=== PATIENT | female | born 1955 | race Caucasian/White ===

== ENCOUNTER 2017-02-23 09:00 | Emergency (ER) | payer BC ==
[~2017-02-23] VITALS: Ht 160 cm; Wt 65.0 kg
[~2017-02-23 09:00] MED LIST: ASPI81TA82 PO; FIORIC PO; TOPR50TA PO; ZOCO40TA PO
[2017-02-23 09:07] VITALS: BP 134/82; PULSE 62; RESP 16; TEMP 97.6; O2SAT 99
--- NOTE | 2017-02-23 09:14 | PD ---
HPI Chief Complaint: Chest Pain Time Seen by Provider: 09:05 Travel History International Travel<30 days: No Contact w/Intl Traveler<30days: No Traveled to known affect area: No History of Present Illness HPI This 61-year-old female is complaining of chest pain and shortness of breath. She had some mild symptoms last night when she took some antibiotics. This morning the pain seemed worse. It is a constant lower sternal pain. It is not affected by deep breathing. She has no history of heart disease. She has not been diaphoretic. There is no radiation. She does not smoke. She has a history of hypertension but did not take her medication this morning. She has no history of diabetes. She was seen in urgent care center on Wednesday for a wound on her right hand from a dog bite. She was sutured and she was started on antibiotics. She has a history of gastric reflux and was on medication in the past but has not been taking them recently. PFSH Past Medical History Arthritis: Yes Heart Rhythm Problems: Yes Cancer: No Cardiovascular Problems: Yes Diabetes: No Diminished Hearing: No Endocrine: No GERD: Yes Genitourinary: No Hepatitis: No Hiatal Hernia: No Hypertension: Yes Immune Disorder: No Musculoskeletal: Yes Neurologic: Yes Psychiatric: No Reproductive: No Respiratory: No Immunizations Current: Yes Migraines: Yes Thyroid Disease: No Menopausal: Yes Past Surgical History Gynecologic Surgery: Yes (PROLAPSE UTERUS) Oral Surgery: Yes (TEETH EXTRACTED) Pacemaker: No Tonsillectomy: Yes Other Surgery: Yes (PROLAPSED UTERUS, RECTUM REPAIR) Social History Alcohol Use: No Tobacco Use: No Substance Use: No Allergies-Medications (Allergen,Severity, Reaction): Coded Allergies: Percocet (Verified Allergy, Severe, HALLUCINATIONS, 02/23/17) Amoxicillin (Verified Allergy, Mild, FEVER,RASH, 02/23/17) Prednisone (Verified Allergy, Mild, HYPER, 02/23/17) Reported Meds & Prescriptions Reported Meds & Active Scripts Active Reported Cipro (Ciprofloxacin HCl) 500 Mg Tab 500 Mg PO BID Clindamycin (Clindamycin HCl) 300 Mg Cap 300 Mg PO Q6H Mupirocin Topical (Mupirocin) 2 % Oint 1 Applic TOPICAL BID Fioricet (Shrsyxtgck-Lwhohvrwqwqpm-Plnnosgg) 50-300-40 Mg Cap 1 Cap PO Q4H PRN Toprol XL (Metoprolol Succinate) 50 Mg Tab 50 Mg PO DAILY Aspirin 81 Mg Tabdr 81 Mg PO DAILY Review of Systems General / Constitutional: No: Fever, Chills Eyes: No: Diploplia, Blurred Vision HENT: No: Headaches, Vertigo Cardiovascular: No: Chest Pain or Discomfort, Palpitations Respiratory: No: Cough Gastrointestinal: Positive: Abdominal Pain Genitourinary: No: Urgency, Frequency Skin: No Rash, No Itching Physical Exam Narrative GENERAL: Well-developed female SKIN: Focused skin assessment warm/dry. HEAD: Atraumatic. Normocephalic. EYES: Pupils equal and round. No scleral icterus. No injection or drainage. ENT: No nasal bleeding or discharge. Mucous membranes pink and moist. NECK: Trachea midline. No JVD. CARDIOVASCULAR: Regular rate and rhythm. No murmur appreciated. RESPIRATORY: No accessory muscle use. Clear to auscultation. Breath sounds equal bilaterally. GASTROINTESTINAL: Abdomen soft, there is epigastric tenderness, nondistended. Hepatic and splenic margins not palpable. MUSCULOSKELETAL: No obvious deformities. No clubbing. No cyanosis. No edema. There is a sutured wound on the right hand at the thumb which is healing with minimal erythema NEUROLOGICAL: Awake and alert. No obvious cranial nerve deficits. Motor grossly within normal limits. Normal speech. PSYCHIATRIC: Appropriate mood and affect; insight and judgment normal. Data Data Last Documented VS Vital Signs Date Time Temp Pulse Resp B/P Pulse Ox O2 Delivery O2 Flow Rate FiO2 02/23/17 10:19 16 02/23/17 09:50 67 108/67 98 Room Air 02/23/17 09:07 97.6 Orders Electrocardiogram (02/23/17 09:11) Complete Blood Count With Diff (02/23/17 09:11) Comprehensive Metabolic Panel (02/23/17 09:11) Troponin I (02/23/17 09:11) Lipase (02/23/17 09:11) Chest, Single Ap (02/23/17 09:11) Al-Mag Hy-Si 40-40-4 Mg/Ml Liq (Mag-Al P (02/23/17 09:15) Aspirin (Aspirin) (02/23/17 10:00) Ondansetron Inj (Zofran Inj) (02/23/17 10:00) Morphine Inj (Morphine Inj) (02/23/17 10:00) Labs Laboratory Tests Test 02/23/17 09:15 White Blood Count 4.8 TH/MM3 Red Blood Count 4.50 MIL/MM3 Hemoglobin 14.1 GM/DL Hematocrit 42.2 % Mean Corpuscular Volume 93.7 FL Mean Corpuscular Hemoglobin 31.2 PG Mean Corpuscular Hemoglobin 33.3 % Concent Red Cell Distribution Width 12.4 % Platelet Count 238 TH/MM3 Mean Platelet Volume 7.2 FL Neutrophils (%) (Auto) 52.5 % Lymphocytes (%) (Auto) 34.4 % Monocytes (%) (Auto) 8.0 % Eosinophils (%) (Auto) 3.6 % Basophils (%) (Auto) 1.5 % Neutrophils # (Auto) 2.4 TH/MM3 Lymphocytes # (Auto) 1.7 TH/MM3 Monocytes # (Auto) 0.4 TH/MM3 Eosinophils # (Auto) 0.2 TH/MM3 Basophils # (Auto) 0.1 TH/MM3 CBC Comment DIFF FINAL Differential Comment Sodium Level 145 MEQ/L Potassium Level 3.5 MEQ/L Chloride Level 108 MEQ/L Carbon Dioxide Level 28.8 MEQ/L Anion Gap 8 MEQ/L Blood Urea Nitrogen 10 MG/DL Creatinine 0.78 MG/DL Estimat Glomerular Filtration 76 ML/MIN Rate Random Glucose 109 MG/DL Calcium Level 8.6 MG/DL Total Bilirubin 0.3 MG/DL Aspartate Amino Transf 19 U/L (AST/SGOT) Alanine Aminotransferase 25 U/L (ALT/SGPT) Alkaline Phosphatase 41 U/L Troponin I LESS THAN 0.02 NG/ML Total Protein 6.9 GM/DL Albumin 3.4 GM/DL Lipase 135 U/L [facility] Medical Decision Making Medical Screen Exam Complete: Yes Emergency Medical Condition: Yes Medical Record Reviewed: Yes Differential Diagnosis Differential includes coronary artery disease, gastritis, ulcer disease Narrative Course Patient is complaining of chest pain but she points to the epigastric region as the site of her pain. She has recently been started on clindamycin and Cipro to treat an infected dog bite. The dog bite is improving. I believe her symptoms are secondary to gastritis from her antibiotic use. She is stable for discharge. Chest x-ray is negative. Troponin is negative Diagnosis Primary Impression: Gastritis Qualified Code: K29.00 - Other acute gastritis without hemorrhage Disposition: DISCHARGE HOME Condition: Stable Gerry Nicole MD February 23, 2017 09:14
[2017-02-23] MEDS ORDERED: ALUMINUM/MAGNESIUM/SIMETH 30 ML CUP PO ONE (09:15)
[2017-02-23 09:31] LABS: AUTOMATED NEUTROPHIL # 2.4 TH/MM3 (1.8-7.7); BASOPHIL # 0.1 TH/MM3 (0-0.2); BASOPHIL % 1.5 % (0.0-2.0); EOSINOPHIL # 0.2 TH/MM3 (0-0.4); EOSINOPHIL % 3.6 % (0.0-4.0); HEMATOCRIT 42.2 % (35.0-46.0); HEMO FLAGS DIFF FINAL; LYMPH % 34.4 % (9.0-44.0); LYMPHOCYTE # 1.7 TH/MM3 (1.0-4.8); MEAN CELL VOLUME 93.7 FL (80.0-100.0); MEAN CORPUSCULAR HEMOGLOBIN 31.2 PG (27.0-34.0); MEAN CORPUSCULAR HGB CONC 33.3 % (32.0-36.0); NEUT % 52.5 % (16.0-70.0); PLATELET COUNT 238 TH/MM3 (150-450); RED CELL DISTRIBUTION WIDTH 12.4 % (11.6-17.2); WHITE BLOOD COUNT 4.8 TH/MM3 (4.0-11.0)
[2017-02-23] MEDS ORDERED: CLIN1CAP6 PO (09:36)
[2017-02-23] MEDS ORDERED: MUPI2OIN TOPICAL (09:36)
[2017-02-23] MEDS ORDERED: TOPR50TA PO (09:36)
[2017-02-23] MEDS ORDERED: ASPI1TAB69 PO (09:36)
[2017-02-23] MEDS ORDERED: CIPR-9 PO (09:36)
[2017-02-23] MEDS ORDERED: BUTA1CAP PO (09:36)
--- NOTE | 2017-02-23 09:38 | RADHPO ---
EXAM DATE/TIME: 02/23/2017 09:32 [facility] COMPARISON: No previous studies available for comparison. INDICATIONS : Chest pain after taking antibiotocs this morning. MEDICAL HISTORY : None. SURGICAL HISTORY : None. ENCOUNTER: Initial ACUITY: 1 day PAIN SCORE: 8/10 LOCATION: Bilateral chest FINDINGS: A single view of the chest demonstrates the lungs to be symmetrically aerated without evidence of mas s, infiltrate or effusion. The cardiomediastinal contours are unremarkable. Osseous structures are intact. CONCLUSION: No acute disease. Guanako Swartz MD on February 23, 2017 at 9:35 Board Certified Radiologist. This report was verified electronically.
[2017-02-23 09:50] VITALS: BP 108/67; PULSE 67; RESP 16; O2SAT 98
[2017-02-23 09:50] LABS: BICARBONATE 28.8 MEQ/L (21.0-32.0)
[2017-02-23 09:53] LABS: AST (GOT) 19 U/L (15-37); GLOMERULAR FILTRATION RATE 76 ML/MIN (>89)
[2017-02-23 09:55] LABS: ANION GAP 8 MEQ/L (5-15); CHLORIDE 108 MEQ/L (98-107); POTASSIUM 3.5 MEQ/L (3.5-5.1); SODIUM (NA) 145 MEQ/L (136-145)
[2017-02-23 09:56] LABS: ALKALINE PHOSPHATASE 41 U/L (45-117)
[2017-02-23 09:58] LABS: ALT (GPT) 25 U/L (10-53)
[2017-02-23] MEDS ORDERED: ASPIRIN 325 MG TAB PO ONE (10:00)
[2017-02-23] MEDS ORDERED: MORPHINE SULFATE 4 MG/ML INJ IV PUSH ONE (10:00)
[2017-02-23] MEDS ORDERED: ONDANSETRON HCL 4 MG/2 ML VIAL IV PUSH ONE (10:00)
[2017-02-23 10:01] LABS: BLOOD UREA NITROGEN 10 MG/DL (7-18)
[2017-02-23 10:10] LABS: TOTAL BILIRUBIN ADULT 0.3 MG/DL (0.2-1.0)
[2017-02-23 10:50] VITALS: BP 106/64; PULSE 68; RESP 16; O2SAT 98
--- NOTE | 2017-02-23 20:11 | EKG ---
Date Performed: 02/23/2017 Time Performed: 09:02:48 PTAGE: 61 years EKG: Sinus rhythm with aberrantly conducted supraventricular complexes. Borderline ECG Compared to prior tracing no si gnificant change DOCTOR: Khanh Ramos Interpretating Date/Time 02/23/2017 20:10:05
== END 2017-02-23 10:59 | disposition home or self-care (01) ==
LOC: PHED 09:00
DX: K29.00 Acute gastritis without bleeding (principal); R07.9 Chest pain, unspecified; R06.02 Shortness of breath; M19.90 Unspecified osteoarthritis, unspecified site; K21.9 Gastro-esophageal reflux disease without esophagitis; I10 Essential (primary) hypertension; Z79.82 Long term (current) use of aspirin; Z79.899 Other long term (current) drug therapy
CPT/HCPCS: 71010; 80053; 83690; 84484; 85025; 93005; 96374; 96375; 99285; J2270; J2405

== ENCOUNTER 2017-12-26 16:31 | Emergency (ER) | payer BC ==
[~2017-12-26] VITALS: Ht 160 cm; Wt 65.0 kg
[~2017-12-26 16:31] MED LIST changes: +ASPI1TAB69 PO; -ASPI81TA82 PO; +BUTA1CAP PO; +CIPR-9 PO; +CLIN300C5 PO; -FIORIC PO; +MUPI2OIN TOPICAL; -ZOCO40TA PO
[2017-12-26 16:42] VITALS: BP 149/90; PULSE 72; RESP 16; TEMP 97.6; O2SAT 98
--- NOTE | 2017-12-26 18:03 | PD ---
HPI Chief Complaint: Injury Time Seen by Provider: 17:33 Travel History International Travel<30 days: No Contact w/Intl Traveler<30days: No Traveled to known affect area: No History of Present Illness HPI 62-year-old female presents emergency department with pain in the left arm and shoulder. Patient states she fell 2 weeks ago while holding her dog, and landed on the left elbow. She states she has had ongoing pain but worse in the last 2 days for some unknown reason. She describes as a sharp pain in the posterior proximal upper arm. She has full range of motion. She denies numbness or tingling. She denies weakness. Pain is 7 out of 10. She denies neck pain. She is allergic to acetaminophen, amoxicillin, oxycodone, and prednisone. PFSH Past Medical History Arthritis: Yes Heart Rhythm Problems: Yes Cancer: No Cardiovascular Problems: Yes Diabetes: No Diminished Hearing: No Endocrine: No Gastrointestinal Disorders: Yes GERD: Yes Genitourinary: No Headaches: Yes Hepatitis: No Hiatal Hernia: No Hypertension: Yes Immune Disorder: No Implanted Vascular Access Dvce: No Medical other: Yes (NECK) Musculoskeletal: Yes Neurologic: Yes Psychiatric: No Reproductive: No Respiratory: No Immunizations Current: Yes Migraines: Yes Thyroid Disease: No ?: Not Menopausal: Yes Past Surgical History Gynecologic Surgery: Yes (PROLAPSE UTERUS) Oral Surgery: Yes (TEETH EXTRACTED) Pacemaker: No Tonsillectomy: Yes Other Surgery: Yes (PROLAPSED UTERUS, RECTUM REPAIR) Social History Alcohol Use: No Tobacco Use: No Substance Use: No Allergies-Medications (Allergen,Severity, Reaction): Coded Allergies: acetaminophen (Unverified Allergy, Severe, HALLUCINATIONS, 05/18/17) oxycodone (Unverified Allergy, Severe, HALLUCINATIONS, 05/18/17) amoxicillin (Unverified Allergy, Mild, FEVER,RASH, 05/18/17) prednisone (Unverified Allergy, Mild, HYPER, 05/18/17) Reported Meds & Prescriptions Reported Meds & Active Scripts Active Tramadol (Tramadol HCl) 50 Mg Tab 50 Mg PO Q6H PRN Prednisone (21) 10 mg tab Dose Pack (Prednisone) 10 Mg Pack 10 Mg PO DIRECTED Reported Cipro (Ciprofloxacin HCl) 500 Mg Tab 500 Mg PO BID Clindamycin (Clindamycin HCl) 300 Mg Cap 300 Mg PO Q6H Mupirocin Topical (Mupirocin) 2 % Oint 1 Applic TOPICAL BID Fioricet (Vooysyadco-Jmjjqysgjuewj-Jcqqofyx) 50-300-40 Mg Cap 1 Cap PO Q4H PRN Toprol XL (Metoprolol Succinate) 50 Mg Tab 50 Mg PO DAILY Aspirin 81 Mg Tabdr 81 Mg PO DAILY Review of Systems Except as stated in HPI: all other systems reviewed are Neg General / Constitutional: No: Fever Eyes: No: Visual changes HENT: No: Headaches Cardiovascular: No: Chest Pain or Discomfort Respiratory: No: Shortness of Breath Gastrointestinal: No: Abdominal Pain Genitourinary: No: Dysuria Musculoskeletal: Positive: Myalgias, Arthralgias, Pain, No: Limited ROM Skin: No Rash Neurologic: No: Weakness Psychiatric: No: Depression Endocrine: No: Polydipsia Hematologic/Lymphatic: No: Easy Bruising Physical Exam Narrative GENERAL: Patient appears in no obvious distress SKIN: Warm and dry. Normal color. Normal turgor. No signs of trauma. No ecchymosis. No rash. HEAD: Atraumatic. Normocephalic. EYES: Pupils equal and round. No scleral icterus. No injection or drainage. ENT: No nasal bleeding or discharge. Mucous membranes pink and moist. Pharynx is clear. Airways patent NECK: Trachea midline. No bony tenderness or step-off. Range of motion is full and nontender CARDIOVASCULAR: Regular rate and rhythm. RESPIRATORY: No accessory muscle use. Clear to auscultation. Breath sounds equal bilaterally. GASTROINTESTINAL: Abdomen soft, non-tender, nondistended. Hepatic and splenic margins not palpable. MUSCULOSKELETAL: Extremities without clubbing, cyanosis, or edema. Patient's pain with palpation to the upper posterior upper arm. Range of motion is full, although painful at end of motion. No weakness is appreciated. No obvious deformity noted. NEUROLOGICAL: Awake and alert. No obvious cranial nerve deficits. Motor grossly within normal limits. Five out of 5 muscle strength in the arms and legs. Normal speech. PSYCHIATRIC: Appropriate mood and affect; insight and judgment normal. Data Data Last Documented VS Vital Signs Date Time Temp Pulse Resp B/P (MAP) Pulse Ox O2 Delivery O2 Flow Rate FiO2 12/26/17 17:25 Room Air 12/26/17 16:42 97.6 72 16 149/90 (109) 98 Orders Orders Elbow, Complete (4 Vws) (12/26/17 17:40) Shoulder, Complete (>2vws) (12/26/17 17:40) Ed Discharge Order (12/26/17 18:37) [facility] Medical Decision Making Medical Screen Exam Complete: Yes Emergency Medical Condition: Yes Differential Diagnosis Trip and fall. Upper arm pain. Possible fracture. Strain. Tendinitis. Contusion. Neuralgia. Narrative Course Patient appears medically stable at time of exam. X-rays of the left shoulder and elbow are ordered. X-rays are unremarkable for acute process per radiologist. Patient will be treated with prednisone 600 mg 4 times daily #40. Patient also given tramadol 50 mg 1 every 6 hours as needed pain #20. Recommend the patient rest the arm and follow-up with her primary if symptoms do not improve. Diagnosis Primary Impression: Left upper arm pain Referrals: Primary Care Physician Patient Instructions: General Instructions Additional Instructions: X-rays are unremarkable for acute process per radiologist. Patient will be treated with prednisone 600 mg 4 times daily #40. Patient also given tramadol 50 mg 1 every 6 hours as needed pain #20. Recommend the patient rest the arm and follow-up with her primary if symptoms do not improve. Med/Other Pt SpecificInfo: Prescription(s) given Scripts Tramadol (Tramadol) 50 Mg Tab 50 MG PO Q6H Y for PAIN, #20 TAB 0 Refills Prov: Adryan Figueredo MD 12/26/17 Disposition: 01 DISCHARGE HOME Condition: Stable Elton Grover Dec 26, 2017 18:02
--- NOTE | 2017-12-26 18:17 | RADRPT ---
EXAM DATE/TIME: 12/26/2017 18:04 [facility] COMPARISON: No previous studies available for comparison. INDICATIONS : Pain in left elbow after slipping 2 weeks ago. MEDICAL HISTORY : None. SURGICAL HISTORY : None. ENCOUNTER: Initial ACUITY: 1 day PAIN SCORE: 3/10 LOCATION: Left elbow FINDINGS: Multiple view examination of the left elbow demonstrates no soft tissue swelling, joint effusion, or fracture. The osseous structures are in normal alignment. Bony mineralization is normal. CONCLUSION: Unremarkable examination of the left elbow. Efrain Granado MD on December 26, 2017 at 18:13 Board Certified Radiologist. This report was verified electronically.
--- NOTE | 2017-12-26 18:18 | RADRPT ---
EXAM DATE/TIME: 12/26/2017 18:02 [facility] COMPARISON: No previous studies available for comparison. INDICATIONS : Pain in left shoulder from slip and fall 2 weeks ago. MEDICAL HISTORY : None. SURGICAL HISTORY : None. ENCOUNTER: Initial ACUITY: 1 day PAIN SCORE: 3/10 LOCATION: Left shoudler FINDINGS: Multiple view examination of the left shoulder demonstrates no evidence of fracture or dislocation. The glenohumeral and acromioclavicular joints are maintained. There is normal range of motion betwee n internal and external rotation. Bony mineralization is normal. CONCLUSION: No acute disease. Efrain Granado MD on December 26, 2017 at 18:16 Board Certified Radiologist. This report was verified electronically.
[2017-12-26] MEDS ORDERED: TRAM50TA PO (18:35)
[2017-12-26] MEDS ORDERED: PRED10PA PO (18:35)
== END 2017-12-26 19:16 | disposition home or self-care (01) ==
LOC: NEPD 16:31
DX: M79.622 Pain in left upper arm (principal); M19.90 Unspecified osteoarthritis, unspecified site; K21.9 Gastro-esophageal reflux disease without esophagitis; I10 Essential (primary) hypertension; Z88.6 Allergy status to analgesic agent; Z88.0 Allergy status to penicillin; Z88.5 Allergy status to narcotic agent; Z79.82 Long term (current) use of aspirin; Z79.899 Other long term (current) drug therapy
CPT/HCPCS: 73030; 73080; 99283